=== PATIENT | female | born 1950 | race Caucasian/White ===

== ENCOUNTER 2016-06-17 19:06 | Emergency (ER) | payer OTHER ==
[2016-06-17 20:04] LABS: BASOPHIL 0.6 % (0-2); EOSINOPHIL 1.8 % (0-7); HCT 42.9 % (37.0-47.0); HGB 14.6 g/dl (12.5-16.0); LYMPHOCYTE 27.3 % (15-48); MCH 30.9 pg (25.0-31.0); MCV 90.9 fL (78.0-100.0); MONOCYTE 6.1 % (0-12); MPV 11.7 fL (6.0-9.5); NEUTROPHIL 64.2 % (41-80); PLT 131 K/uL (150-400); RBC 4.72 M/uL (4.20-5.40); RDW 13.4 % (11.5-14.0); WBC 5.4 K/uL (4.0-10.5)
[2016-06-17 20:15] LABS: INR 0.94 (0.9-1.2); PROTHROMBIN TIME 12.2 SECONDS (11.7-14.0); PTT 27.1 SECONDS (23.2-31.4)
[2016-06-17 20:18] LABS: BILIRUBIN NEGATIVE (NEGATIVE); BLOOD 3+ Ery/uL (NEGATIVE); CLARITY CLOUDY (CLEAR); COLOR YELLOW (YELLOW); GLUCOSE (U) 1+ mg/dL (NORMAL); KETONE (U) NEGATIVE (NEGATIVE); LEUKOCYTES 1+ Leu/uL (NEGATIVE); NITRITE NEGATIVE (NEGATIVE); PROTEIN 1+ mg/dL (NEGATIVE); SPECIFIC GRAVITY 1.025 (1.001-1.030); pH 5.5 (5.0-9.0)
[2016-06-17 20:23] LABS: ALBUMIN 3.7 g/dL (3.4-4.8); BILIRUBIN - TOTAL 0.5 mg/dL (0.1-1.0); CREATININE 1.2 mg/dL (0.5-1.0); GLOBULIN (CALCULATION) 3.1 g/dL (2.2-4.2); POTASSIUM 4.8 mmol/L (3.5-5.1); TOTAL PROTEIN 6.8 g/dL (6.4-8.3)
[2016-06-17 20:24] LABS: MYOGLOBIN 54 ng/mL (26-65); TROPONIN T < 0.010 ng/mL
[2016-06-17 20:25] LABS: BACTERIA TRACE; SQUAMOUS EPITHELIAL CELLS RARE
== END 2016-06-17 20:45 | disposition other institution (70) ==
LOC: FER 19:06
PROVIDERS: Emergency Medicine Emergency Medical Services
DX: E11.65 Type 2 diabetes mellitus with hyperglycemia (principal); R29.810 Facial weakness; R82.90 Unspecified abnormal findings in urine; Z88.0 Allergy status to penicillin; Z88.8 Allergy status to other drugs, medicaments and biological substances; Z79.4 Long term (current) use of insulin; Z87.440 Personal history of urinary (tract) infections; Z86.73 Personal history of transient ischemic attack (TIA), and cerebral infarction without residual deficits; Z89.521 Acquired absence of right knee; Z79.899 Other long term (current) drug therapy
CPT/HCPCS: 36415; 70450; 71010; 80053; 80061; 81001; 82550; 82553; 83874; 84484; 85025; 85610; 85730; 93005

== ENCOUNTER → 2016-06-28 | Day surgery (SDC) | payer OTHER | END | disposition home or self-care (01) | LOC: FAS 07:27 | DX: K20.9 Esophagitis, unspecified (principal); K22.2 Esophageal obstruction; I10 Essential (primary) hypertension; E03.9 Hypothyroidism, unspecified; E10.9 Type 1 diabetes mellitus without complications; E78.00 Pure hypercholesterolemia, unspecified; Z86.73 Personal history of transient ischemic attack (TIA), and cerebral infarction without residual deficits; Z98.84 Bariatric surgery status; Z89.511 Acquired absence of right leg below knee; Z90.710 Acquired absence of both cervix and uterus; Z90.49 Acquired absence of other specified parts of digestive tract; Z88.0 Allergy status to penicillin; Z88.8 Allergy status to other drugs, medicaments and biological substances; Z79.82 Long term (current) use of aspirin; Z79.4 Long term (current) use of insulin; Z79.02 Long term (current) use of antithrombotics/antiplatelets; Z79.899 Other long term (current) drug therapy; Z98.890 Other specified postprocedural states | CPT/HCPCS: 88305; J2704 ==

== ENCOUNTER 2021-04-17 14:29 | Emergency (ER) | payer OTHER ==
[~2021-04-17 14:29] MED LIST: ASPIRIN EC81 MG PO; HUMALOG 75100 UNIT/M SC; HUMALOG MI100 UNIT/1 SC; LIPITOR 10MG TA10 MG PO; LISINOPRIL-HCT1 EAC1 PO; MELATONIN10 M5 PO; PLAVIX75 MG PO; TYLENOL PM EX-1 EACH PO; ZOLOFT50 MG PO
[2021-04-17 16:30] LABS: INFLUENZA A NAA NEGATIVE (NEGATIVE)
[2021-04-17 16:34] LABS: CORONAVIRUS 2019 SARS-COV-2 POSITIVE (NEGATIVE)
== END 2021-04-17 18:15 | disposition home or self-care (01) ==
LOC: FER 14:29
PROVIDERS: Physician Assistant
DX: U07.1 COVID-19 (principal); E11.9 Type 2 diabetes mellitus without complications; Z88.0 Allergy status to penicillin
CPT/HCPCS: 99283; U0002